=== PATIENT | male | born 1970 | race Two or more races ===

== ENCOUNTER 2020-07-11 09:25 | Outpatient (CLI) | payer OTHER | END 2020-07-11 09:30 | disposition home or self-care (01) | LOC: RAD 09:25 | PROVIDERS: ATTEND Orthopaedic Surgery | DX: R07.89 Other chest pain (principal) ==

== ENCOUNTER 2025-02-02 14:29 | Outpatient (CLI) | payer OTHER | END 2025-02-02 14:38 | disposition home or self-care (01) | LOC: RAD 14:29 | PROVIDERS: ATTEND Specialist | DX: M17.0 Bilateral primary osteoarthritis of knee (principal) ==